=== PATIENT | female | born 1985 | race Caucasian/White ===

== ENCOUNTER 2017-02-05 18:46 | Inpatient (IN) | payer BC ==
[2017-02-05] VITALS (10 sets, daily range): BP systolic 114–135; BP diastolic 69–88; PULSE 81–93; TEMP 97.5–97.8
[~2017-02-05] VITALS: Ht 172.7 cm; Wt 90.9 kg
[~2017-02-05 18:46] MED LIST: MOTRIN 600600 MG/TAB PO; PRENATAL1 TA1 PO
[2017-02-05 21:01] LABS: BASO % 0.2 % (0.0-2.0); EOS # 0.1 (0.0-0.7); GRAN # 8.5 (1.4-6.5); GRAN % 76.4 % (42.2-75.2); HEMOGLOBIN 12.1 g/dl (12.5-16.0); LYMPH # 1.7 (1.2-3.4); LYMPH % 15.1 % (20.0-51.0); MEAN CELL VOLUME 85 fl (80.0-100.0); MEAN CORPUSCULAR HEMOGLOBIN 28 pg (27.0-31.0); MEAN CORPUSCULAR HGB CONC 33 g/dl (33.0-37.0); MONO # 0.7 (0.1-0.6); MONO % 6.6 % (1.7-9.3); PLATELET COUNT 213 K/mm3 (130-400); RED BLOOD COUNT 4.29 M/mm3 (4.10-5.30); REDCELL DISTRIBUTION WIDTH-CV 13.4 % (11.5-14.5); WHITE BLOOD COUNT 11.1 K/mm3 (4.8-10.8)
[2017-02-05 21:09] LABS: HEMATOCRIT 36.4 % (37.0-47.0)
[2017-02-06] VITALS (14 sets, daily range): BP systolic 101–140; BP diastolic 59–83; PULSE 83–116; TEMP 97.6–98.8
[2017-02-07] MEDS ORDERED: PERCOCET 325 MG1 TA2 PO (07:59)
[2017-02-07] MEDS ORDERED: IBU800 M1 PO (07:59)
[2017-02-07 08:30] VITALS: BP 127/79; PULSE 100; TEMP 97.9
== END 2017-02-07 12:15 | disposition home or self-care (01) | DRG 775 ==
LOC: LDRO 18:46 → OB 19:39 → LDR 19:39 → OB 02-06 03:00
PROVIDERS: Obstetrics & Gynecology
PROC: 10E0XZZ Delivery of Products of Conception, External Approach (ICD-10-PCS; principal; 2017-02-05)
DX: O42.02 Full-term premature rupture of membranes, onset of labor within 24 hours of rupture (principal); Z3A.39 39 weeks gestation of pregnancy; Z37.0 Single live birth
CPT/HCPCS: J2400; J2590; J7120

== ENCOUNTER 2017-05-02 20:12 | Emergency (ER) | payer BC ==
[~2017-05-02] VITALS: Ht 172.7 cm; Wt 82.7 kg
[~2017-05-02 20:12] MED LIST changes: +IBU800 M1 PO; +PERCOCET 325 MG1 TA2 PO
[2017-05-02 20:18] VITALS: TEMP 98
[2017-05-02 21:32] VITALS: BP 108/62; PULSE 77
== END 2017-05-02 21:17 | disposition home or self-care (01) ==
LOC: COL.ER 20:12
DX: S61.211A Laceration without foreign body of left index finger without damage to nail, initial encounter (principal); W26.0XXA Contact with knife, initial encounter

== ENCOUNTER 2018-09-05 05:07 | Outpatient (CLI) | payer BC ==
[~2018-09-05] VITALS: Ht 172.7 cm; Wt 98.2 kg
[2018-09-05] MEDS ORDERED: PRENATAL-U1 CAP PO (05:35)
[2018-09-05 05:45] VITALS: BP 124/80; PULSE 90; TEMP 97.8
[2018-09-05 06:15] VITALS: BP 120/72; PULSE 88
[2018-09-05 06:30] VITALS: BP 125/75; PULSE 84
== END 2018-09-05 06:45 | disposition home or self-care (01) ==
LOC: LDRO 05:07
DX: O47.1 False labor at or after 37 completed weeks of gestation (principal); Z3A.37 37 weeks gestation of pregnancy

== ENCOUNTER 2018-09-16 07:32 | Inpatient (IN) | payer BC ==
[2018-09-16] VITALS (36 sets, daily range): BP systolic 108–159; BP diastolic 56–96; PULSE 68–100; TEMP 97.4–98.4
[~2018-09-16] VITALS: Ht 172.7 cm; Wt 100.0 kg
[~2018-09-16 07:32] MED LIST changes: +PRENATAL-U1 CAP PO
[2018-09-16 08:27] LABS: BASO % 0.2 % (0.0-2.0); EOS # 0.1 (0.0-0.7); EOS % 1.2 % (0-4.0); GRAN # 5.6 (1.4-6.5); GRAN % 69.9 % (42.2-75.2); HEMATOCRIT 36.9 % (37.0-47.0); HEMOGLOBIN 11.9 g/dl (12.5-16.0); LYMPH # 1.6 (1.2-3.4); MEAN CELL VOLUME 88 fl (80.0-100.0); MEAN CORPUSCULAR HEMOGLOBIN 28 pg (27.0-31.0); MEAN CORPUSCULAR HGB CONC 32 g/dl (33.0-37.0); MEAN PLATELET VOLUME 11.6 fl (7.4-10.4); MONO # 0.6 (0.1-0.6); MONO % 7.6 % (1.7-9.3); PLATELET COUNT 201 K/mm3 (130-400); RED BLOOD COUNT 4.21 M/mm3 (4.10-5.30); REDCELL DISTRIBUTION WIDTH-CV 12.8 % (11.5-14.5)
[2018-09-17 03:00] VITALS: BP 120/69; PULSE 89; TEMP 97.7
[2018-09-17 06:45] VITALS: BP 117/64; PULSE 81; TEMP 97.9
[2018-09-17] MEDS ORDERED: IBU800 M1 PO (08:47)
== END 2018-09-17 17:05 | disposition home or self-care (01) | DRG 807 ==
LOC: LDR 07:32 → OB 15:42
PROVIDERS: Student in an Organized Health Care Education/Training Program
PROC: 10E0XZZ Delivery of Products of Conception, External Approach (ICD-10-PCS; principal; 2018-09-16)
PROC: 10907ZC Drainage of Amniotic Fluid, Therapeutic from Products of Conception, Via Natural or Artificial Opening (ICD-10-PCS; 2018-09-16)
PROC: 3E033VJ Introduction of Other Hormone into Peripheral Vein, Percutaneous Approach (ICD-10-PCS; 2018-09-16)
PROC: 10S0XZZ Reposition Products of Conception, External Approach (ICD-10-PCS; 2018-09-16)
DX: O32.2XX0 Maternal care for transverse and oblique lie, not applicable or unspecified (principal); Z37.0 Single live birth; O32.0XX0 Maternal care for unstable lie, not applicable or unspecified; Z3A.39 39 weeks gestation of pregnancy; O69.81X0 Labor and delivery complicated by cord around neck, without compression, not applicable or unspecified; O76 Abnormality in fetal heart rate and rhythm complicating labor and delivery; Z28.21 Immunization not carried out because of patient refusal
CPT/HCPCS: J2590; J2795; J3105; J7120

== ENCOUNTER → 2024-02-12 | Outpatient (CLI) | payer OTHER | LOC: MC.RAD 08:06 | DX: Z12.31 Encounter for screening mammogram for malignant neoplasm of breast (principal) ==